=== PATIENT | female | born 1960 | race Caucasian/White ===

== ENCOUNTER 2016-11-06 17:55 | Emergency (ER) | payer OTHER ==
[~2016-11-06] VITALS: Ht 175.3 cm; Wt 102.0 kg
[2016-11-06 17:55] VITALS: Ht 175.3 cm; Wt 102.0 kg
[~2016-11-06 17:55] MED LIST: CLON1TAB4 PO; HYDR25TA PO; L.AC1CAP6 PO; NITR100C4 PO
--- OUTSIDE RECORDS SUMMARY | 2016-11-06 17:58 | XMS REPORT | Continuity of Care Document ---
Author Author [facility] Organization [facility] Address Unknown Phone Unavailable Support Name Relationship Address Phone GREYSON MEDINA DO Caregiver [address] [place] [address] Unavailable ALYSIADEANNA MERIMARYANN FIGUEROA Caregiver [address] [place] [address] Unavailable FLO BOYD Next Of Kin [address] [phone] Insurance Providers Guarantor Brooks Boyd Address [address] [place] [address] Email DENIED/NO TO PORTAL Payer [employer] Ppo/Open Choice Policy Number [id number] Subscriber's Name Flo Boyd Relationship 01 Spouse Group Number [id number] Chief Complaint and Reason for Visit Chief Complaint Cough,Fever,Flu,URI Reason for Visit Dysuria Problems Past Problems Medical Problem Onset Date Acromioclavicular separation, type 1 Unknown Dysuria Unknown Medications Current Home Medications Medication Dose Units Route Directions Days Qty Instructions Start Date Clonazepam 1 Mg Tablet 0.5 Mg Oral Twice A Day 03/08/16 Hydrochlorothiazide 25 Mg Tablet 25 Mg Oral Give With Breakfast 03/08/16 L.acidoph & Paracasei,B.lactis (Probiotic) 1 Each Capsule 1 Cap Oral Daily 03/08/16 Nitrofurantoin Monohyd/M-Cryst (Macrobid 100 Mg Capsule) 100 Mg Capsule 1 Cap Oral Twice Daily With Meals 5 Days 10 Capsule Take 2 (100 mg) capsules , by mouth, twice daily with meals. Supervising physician Dr. Ed Moss Distribution Collection Operator [facility] [address] [facility] [phone] Social History Social History Problem Response Recorded Date/Time Onset Date Status Hx Alcohol Use No 03/08/2016 8:50pm Not Applicable Not Applicable Hospital Discharge Instructions No hospital discharge instructions. Plan of Care Discharge Date 05/22/16 11:10am Disposition 01 DISCHARGED HOME, SELF-CARE Condition at Discharge Stable Instructions/Education Provided DI for Dysuria -- Adult Prescriptions See Medication Section Referrals GREYSON MEDINA Address: [address] [address] Additional Instructions/Education Take macrobid as directed. Drink fluids. Use A&D ointment externally on vulva for barrier. Follow with PCP. Functional Status No functional status results. Allergies, Adverse Reactions, Alerts Allergen Type Severity Reaction Status Last Updated Codeine Adverse Reaction Severe VOMITING Active 05/22/16 Immunizations Query Response on File Recorded Date/Time Hx Tetanus Diptheria No 03/08/16 8:50pm Hx Tetanus Toxoid Vaccination Yes 03/08/16 8:50pm Vital Signs Acute Vital Signs Vital Response Date/Time Temperature (Fahrenheit) 97.2 deg F (96.8 - 99.1) 05/22/2016 10:03am Temperature (Calculated Celsius) 36.27831 degrees C (36.0 - 37.3) 05/22/2016 10:03am Pulse Rate (adult) 62 bpm (60 - 100) 05/22/2016 10:03am Respiratory Rate 16 breaths/min (10 - 20) 05/22/2016 10:03am O2 Sat by Pulse Oximetry 99 % (90 - 100) 05/22/2016 10:03am Blood Pressure 139/80 mm Hg 05/22/2016 10:03am Height (Feet) 5 feet 03/08/2016 8:46pm Height (Inches) 68.00 inches 05/22/2016 10:03am Weight (Kilograms) 120.500 kg 05/22/2016 10:03am Body Mass Index (BMI) 40.0 05/22/2016 10:03am Results Laboratory Results Test Name Result Units Flags Reference Collection Date/Time Result Date/ Time Comments Urine Collection Type CLEANCATCH-MIDSTREAM 05/22/2016 10:10am 05/22 11:10am Urine Color DK YELLOW YELLOW 05/22/2016 10:10am 05/22/2016 11:10am Urine Turbidity CLOUDY CLEAR 05/22/2016 10:10am 05/22/2016 11:10am Urine Specific [place] 1.025 1.015-1.025 05/22/2016 10:10am 2015 11:10am Urine pH 5.0 5.0-8.0 05/22/2016 10:10am 05/22/2016 11:10am Urine Leukocyte Esterase NEGATIVE NEGATIVE 05/22/2016 10:10am 2015 11:10am Urine Nitrite NEGATIVE NEGATIVE 05/22/2016 10:10am 05/22/2016 11: 10am Urine Protein NEGATIVE NEGATIVE 05/22/2016 10:10am 05/22/2016 11: 10am Urine Glucose (UA) NEGATIVE NEGATIVE 05/22/2016 10:10am 05/22/2016 11 :10am Urine Ketones NEGATIVE NEGATIVE 05/22/2016 10:10am 05/22/2016 11: 10am Urine Urobilinogen NORMAL EU/DL NORMAL 05/22/2016 10:10am 05/22/2016 11 :10am Urine Bilirubin NEGATIVE NEGATIVE 05/22/2016 10:10am 05/22/2016 11: 10am Urine Blood NEGATIVE NEGATIVE 05/22/2016 10:10am 05/22/2016 11:10am Procedures Procedure Status Date Provider(s) X-RAY EXAM UNILAT RIBS/CHEST Completed 03/08/16 X-RAY EXAM OF SHOULDER Completed 03/08/16 EMERGENCY DEPT VISIT Completed 03/08/16 Encounters Encounter Location Arrival/Admit Date Discharge/Depart Date Attending Provider Departed Emergency Room [facility] 05/22/16 10:02am 05/22/16 11: 10am MERI WHITMAN APRN Departed Emergency Room [facility] 03/08/16 8:03pm 03/08/16 9: 58pm CAROLINA SHERMAN MD Recent Diagnosis
--- OUTSIDE RECORDS SUMMARY | 2016-11-06 17:58 | XMS REPORT | Continuity of Care Document ---
Author Author [facility] Organization [facility] Address Unknown Phone Unavailable Allergies Active Description Code Type Severity Reaction Onset Reported/Identified Relationship to Patient Clinical Status Yes No Known Allergies No Known Allergies Drug Allergy Unknown N/A 10/14/2015 Medications Problems Procedures Results Test Result Range CBC W/DIFF - 10/14/15 06:55 EOSINOPHIL # 0.1 k/cumm 0.1-0.5 EOSINOPHIL % 2 % 2-4 GRANULOCYTE # 2.5 k/cumm 2.0-9.0 GRANULOCYTE % 56 % 50-75 LYMPHOCYTE # 1.5 k/cumm 1.0-4.0 LYMPHOCYTE % 33 % 20-30 MEAN CELL HGB 28.1 pg 27.0-33.0 MEAN CELL HGB CONCENTRATION 33.0 g/dL 32.0-37.0 MEAN CELL VOLUME 85.0 fl 80.0-100.0 MONOCYTE # 0.4 k/cumm 0.1-1.0 MONOCYTE % 9 % 4-6 RED BLOOD CELL 4.81 m/cumm 4.00-6.00 RED CELL DISTRIBUTION WIDTH 14.3 % 11.0- 15.6 WHITE BLOOD CELL 4.6 k/cumm 5.0-10.0 HEMOGLOBIN 13.5 gm/dL 12.0-16.0 HEMATOCRIT 40.9 % 37.0-47.0 PLATELET COUNT 136 k/cumm 150-450 METABOLIC PANEL, COMPREHN - 10/14/15 06:55 POTASSIUM 3.9 mmol/L 3.5-5.3 EST GFR (MDRD) 52 mL/min > 59 ANION GAP 6 mmol/L 5-15 GLUCOSE 97 mg/dL 70-99 CALCIUM 9.0 mg/dL 8.5-10.1 BLOOD UREA NITROGEN 23 mg/dL 7-20 CREATININE 1.1 mg/dL 0.6-1.0 SODIUM 144 mmol/L 135-148 CHLORIDE 106 mmol/L 98-110 AST/SGOT 19 Units/L 10-37 ALT/SGPT 27 Units/L < 66 CARBON DIOXIDE 32 mmol/L 21-32 TOTAL PROTEIN 6.6 gm/dL 6.4-8.2 ALBUMIN 3.7 gm/dL 3.4-5.0 BILI TOTAL 0.7 mg/dL 0.0-1.0 ALKALINE PHOSPHATASE TOTAL 76 IU/L 45- 117 Encounters ACCT No. Visit Date/Time Discharge Status Pt. Type Provider Facility Loc./Unit Complaint [id number] 03/14/2014 17:25:00 2013 17:25:00 DIS Outpatient Javier GIBBONS Wood [facility]
--- NOTE | 2016-11-06 18:13 | NUR ---
ACTIVITY PATIENT AMBULATORY TO RESTROOM, TOLERATES ACTIVITY WELL.
--- OUTSIDE RECORDS SUMMARY | 2016-11-06 18:21 | XMS REPORT | Continuity of Care Document ---
Author Author [facility] Organization [facility] Address Unknown Phone Unavailable Allergies [...] Status Pt. Type Provider Facility Loc./Unit Complaint [id number] 03/14/2014 17:25:00 2013 17:25:00 DIS Outpatient Javier GIBBONS Wood [facility]
[2016-11-06 18:26] LABS: COLOR,URINE ORANGE (YELLOW)
--- NOTE | 2016-11-06 18:27 | ERPDOC ---
Departure Disposition Decision Date: November 06, 2016 Disposition Decision Time: 18:58 Disposition: 01 DISCHARGED HOME, SELF-CARE Impression Impression Impression: Primary Impression: Acute hemorrhagic cystitis Additional Impression: Yeast vaginitis Severity: Moderate Condition: Improved Seen By: Physician only Referrals: GREYSON MEDINA DO (Family) Patient Instructions: Urinary Tract Infection in Women (ED) Problems/Meds/Labs Reviewed?: Yes Medications reviewed and manag: Yes Additional Instructions: Keflex 500 mg one tablet 3 times daily for 5 days Diflucan 150 mg tablets, take one tablet after all antibiotics or taken to prevent vaginal yeast infection See your doctor in 2-3 days if symptoms are not resolved Follow up care ordered?: Yes Mental Status: Alert Scripts Fluconazole (Diflucan) 150 Mg Tablet 1 TAB PO O, #1 TAB Prov: CAROLINA SHERMAN MD 11/06/16 Cephalexin (Keflex) 500 Mg Capsule 500 MG PO TID, #15 CAP Prov: CAROLINA SHERMAN MD 11/06/16 HPI - Female General Chief Complaint: Female Urogenital Problems Stated Complaint: BLOOD IN URINE Time Seen by Provider: 18:10 Source: patient Exam Limitations: no limitations HPI - Female Initial Comments Patient has been feeling "off" for several days, feeling sluggish as though she had the flu. Today the patient began having burning with urination, area when she wiped, and mild feelings of nausea. After starting Azo one dose, the patient ran out of the box that if she needed a urinalysis that the Azo would interfere, so she stopped taking and came to the ER. Occurred At: home Onset: Gradual Duration: 1 week Severity/Quality: burning Radiation: suprapubic Associated Symptoms: abdominal pain, dysuria, nausea/vomiting, urinary frequency, DENIES: diaphoresis, fever/chills, loss of bladder control, lower back pain, lumps, mass, nocturia, polyuria, swelling, syncope Allergies: Coded Allergies: codeine (Verified Adverse Reaction, Severe, VOMITING, 11/06/16) Past History Past Medical History Metabolic: hypertension Psychological: anxiety Surgical History General: gallbladder Reproductive/: hysterectomy Family History Family PMH: FOUND: CHF Vaccines Hx Tetanus Diptheria: No Social History Smoking Status: Never smoker Does patient use chewing tobac: No Second Hand Exposure: No Substance Use Type: does not use Alcohol Intake: none Review of Systems Constitutional Constitutional: DENIES: appetite decrease, appetite increase, chills, dizziness , fever, weakness ENMT Ears: DENIES: pain Hearing: DENIES: hearing loss, tinnitus Balance: DENIES: vertigo Mouth/Throat: DENIES: change in swallowing, change in voice, hoarsness, painful swallowing, sore throat Cardiovascular Cardiac: DENIES: chest pain, dyspnea on exertion Rhythm/Rate: DENIES: irregular beat, palpitations, tachycardia Vascular: DENIES: pedal edema Pulmonary Respiratory: DENIES: cough, dyspnea, pleuritic chest pain GI Upper Abdomen: nausea, DENIES: dysphagia, heartburn/indigestion, pain, vomiting Lower Abdomen: DENIES: blood in stool, constipation, diarrhea, pain General: burning, frequency, hematuria, urgency Musculoskeletal General: DENIES: cramps, joint pain, joint swelling, pain, weakness Integumentary Skin: DENIES: rash, sores Neurological General: DENIES: headache, numbness, tingling, vertigo, weakness Psychiatric Psychiatric: DENIES: anxiety, depression, nervousness Physical Exam General General Nourishment: well nourished, well developed, appears stated age, no acute distress General Body Habitus: well groomed Vitals and Pain First Documented Vital Signs Date Time Temp Pulse Resp B/P Pulse Ox O2 Delivery O2 Flow Rate FiO2 11/06/16 17:55 98.0 78 16 155/76 98 Room Air Weight: Kilograms: 102.000 Height (feet): 5 Height (inches): 9.00 Triage Pain Scale: RN VS reviewed by Provider: Yes Normal Exams: Head: Normocephalic w/o trauma Eyes: Pupils are PERRLA w/ EOMI, No scleral icterus, irritation, or foreign bodies noted ENMT: No facial trauma, nasal exudates, pharyngeal erythema, or exudates are noted Neck: Full range of motion, without adenopathy, JVD, bruits or thyromegaly Chest/Resp: Clear all quiles, with good airflow, and symmetry bilaterally CV: Regular rate and rhythm, without murmur or gallop, Pulses 2+ all extremities, capillary refill, <2 seconds all ext., no pedal edema noted Lymphatic: No lymphadenopathy, or lymphedema noted Musculoskeletal: No tenderness, or deformity noted, good range of motion, all extremities Integumentary: No rashes, hives, or bruising noted, hair and nails, without abnormality Neurologic: Patient is alert, and oriented, cranial nerves, motor/sensory/ cerebellar, exams w/o gross deficits, to observation Psychiatric: Patient exhibits, appropriate attention, emotion and affect Abdomen (brief) Abdominal Brief: FOUND: bowel normo active x4, soft, tender (I'll suprapubic tenderness, mild bilateral flank tenderness with no morgan CVA tenderness or peritoneal signs), NOT FOUND: distended, hepatosplenomegaly, pulsatile mass Progress Results/Orders Orders Procedure Category Date Status Time UA, LAB 11/06/16 Complete Dip&Micro(Complete) & 18:22 Lab Results Laboratory Tests Test 11/06/16 18:22 Urine Collection Type Cleancatch-midstream Urine Color [place] Urine Turbidity Clear Urine pH 5.5 Urine Specific [place] 1.025 Urine Protein Inconcl due to color Urine Glucose (UA) Inconcl due to color Urine Ketones Inconcl due to color Urine Blood Inconcl due to color Urine Nitrite Inconcl due to color Urine Bilirubin Inconcl due to color Urine Urobilinogen Inconcl due to colorEU/DL Urine Leukocyte Esterase Inconcl due to color Urine RBC 1-3/HPF Urine WBC 5-10/HPF Urine Squamous Epithelial Cells 0-5 Urine Bacteria 2+ Urine Culture Indicated Cult not indicated Progress Progress Patient is a 30 taken Azo, and declines further pain medication at this time UA - white blood cells and bacteria, urine dip is to be accomplished and Azo staining Due to the patient's symptoms and feelings of vaginal irritation as well as burning, we will start the patient on Keflex now, give one dose of Diflucan now and one dose of the end of therapy for possible vaginal yeast infection as well. CAROLINA SHERMAN MD November 06, 2016 18:27
[2016-11-06 18:28] LABS: BLOOD, URINE INCONCL DUE TO COLOR (NEGATIVE); LEUKOCYTE ESTERASE ,URINE INCONCL DUE TO COLOR (NEGATIVE); NITRITE,URINE INCONCL DUE TO COLOR (NEGATIVE); UROBILINOGEN,URINE INCONCL DUE TO COLOR EU/DL (NORMAL)
[2016-11-06] MEDS ORDERED: VITS42.53 TOP (18:33)
[2016-11-06] MEDS ORDERED: ALBU18HF2 INH (18:33)
[2016-11-06] MEDS ORDERED: HYDR12.530 PO (18:33)
[2016-11-06] MEDS ORDERED: PHEN-846 PO (18:35)
[2016-11-06] MEDS ORDERED: LACT1CAP73 PO (18:35)
[2016-11-06] MEDS ORDERED: KAVINACE PO (18:35)
[2016-11-06 18:43] LABS: BACTERIA,URINE 2+ (NEGATIVE); SQUAMOUS EPITHELIAL CELL,UR 0-5
[2016-11-06] MEDS ORDERED: CEPHALEXIN 500 MG CAPSULE PO ONE (19:00)
[2016-11-06] MEDS ORDERED: FLUC150T PO (19:00)
[2016-11-06] MEDS ORDERED: CEPH-583 PO (19:00)
[2016-11-06] MEDS ORDERED: FLUCONAZOLE 150 MG TABLET PO ONE (19:00)
[2016-11-06 19:13] VITALS: BP 132/63; PULSE 66; RESP 16; TEMP 98; O2SAT 96
== END 2016-11-06 19:13 | disposition home or self-care (01) ==
LOC: ED 17:55
DX: N30.01 Acute cystitis with hematuria (principal); B37.3 Candidiasis of vulva and vagina
CPT/HCPCS: 81001; 87077; 87086; 87186